=== PATIENT | male | born 1970 | race African-American/Black ===

== ENCOUNTER 2020-05-11 07:25 | Inpatient (IN) | payer OTHER ==
[2020-05-11] VITALS (31 sets, daily range): BP systolic 147–244; BP diastolic 81–172
[~2020-05-11] VITALS: Ht 182.9 cm; Wt 205.0 kg
[2020-05-11] MEDS ORDERED: SODIUM CHLORIDE 0.9% 1,000 ML IV ONE ×2 (07:59)
[2020-05-11 08:17] LABS: HEMATOCRIT. 49.4 % (42.0-52.0); HEMOGLOBIN. 14.7 g/dL (14.0-18.0); MEAN CORPUSCULAR HEMOGLOBIN 29.2 pg (28.0-32.0); MEAN CORPUSCULAR VOLUME 98.3 fL (80.0-94.0); MEAN PLATELET VOLUME 10.7 fl (7.4-10.4); PLATELET 270 x1000/uL (130-400); RED BLOOD CELL COUNT 5.02 mill/uL (4.7-6.1); RED CELL DISTRIBUTION WIDTH 16.2 % (11.6-14.6)
[2020-05-11 08:27] LABS: CHLORIDE 104 mEq/L (98-107)
[2020-05-11] MEDS ORDERED: INSULIN REGULAR (DRIP) 100 UNITS in SODIUM CHLORIDE 0.9% 99 ML IV ONE ×4 (09:00)
[2020-05-11 09:04] LABS: BG BASE EXCESS -4.1 mmol/L (-2.0-2.0); BG CARBOXYHEMOGLOBIN 0.6 % (0.5-1.5); BG DEOXYHEMOGLOBIN 7.8 % (0.0-5.0); BG FRACTION INSPIRED OXYGEN 21; BG HCO3 ACT 22.7 mmol/L (22.0-26.0); BG METHEMOGLOBIN 0.3 % (0.0-1.5); BG OXYGEN SATURATION 92.1 % (92.0-98.5); BG OXYHEMOGLOBIN 91.3 % (94.0-97.0); BG PCO2 47.8 mmHg (35.0-45.0); BG PH 7.295 (7.350-7.450); BG PO2 68.5 mmHg (75.0-100.0); BG SAMPLE SITE LEFT RADIAL; BG TOTAL HEMOGLOBIN 15.4 g/dL (12.0-18.0); BG VENT MODE ROOM AIR
[2020-05-11 09:34] LABS: CLARITY URINE CLOUDY (CLEAR); COLOR URINE YELLOW (YELLOW); KETONES URINE TRACE (NEGATIVE); LEUKOCYTE ESTERASE URINE NEGATIVE (NEGATIVE); NITRITE URINE NEGATIVE (NEGATIVE); OCCULT BLOOD URINE TRACE (NEGATIVE); PROTEIN URINE NEGATIVE (NEGATIVE); SPECIFIC GRAVITY URINE 1.038 (1.005-1.030); UROBILINOGEN URINE 0.2 E.U./dL (0.2-1.0)
[2020-05-11 09:51] LABS: PLATELET ESTIMATE NORMAL
[2020-05-11] MEDS ORDERED: IPRATROPIUM/ALBUTEROL 0.5-3(2.5)MG/3ML NEB HHN PRN (15:15)
[2020-05-11] MEDS ORDERED: ACETAMINOPHEN 325MG TABLET PO PRN (15:15)
[2020-05-11] MEDS ORDERED: INSULIN REGULAR (DRIP) 100 UNITS in SODIUM CHLORIDE 0.9% 99 ML IV SCH ×2 (15:15→21:00)
[2020-05-11] MEDS ORDERED: ENOXAPARIN 40MG/0.4ML SYR SUBCUT SCH (15:15)
[2020-05-11] MEDS ORDERED: INSULIN REGULAR (HUMULIN R) 300UNITS/3ML IV ONE (15:15)
[2020-05-11] MEDS: SODIUM CHLORIDE 0.9% 1,000 ML IV SCH ×2 (15:27→19:22)
[2020-05-11] MEDS ORDERED: LEVOFLOXACIN 500MG PREMIX 100 ML IV SCH (15:30)
[2020-05-11] MEDS ORDERED: PANTOPRAZOLE SODIUM 40 MG/VIAL IV SCH (15:30)
[2020-05-11] MEDS: ONDANSETRON HCL 4MG/2ML INJ IV PRN (15:32)
[2020-05-11] MEDS: PANTOPRAZOLE SODIUM 40 MG/VIAL IV SCH (15:33)
[2020-05-11 16:08] LABS: CHLORIDE 115 mEq/L (98-107)
[2020-05-11] MEDS ORDERED: INSULIN REGULAR (DRIP) 100 UNITS in SODIUM CHLORIDE 0.9% 99 ML IV PRN (18:30)
[2020-05-11] MEDS ORDERED: POTASSIUM CHLORIDE INJ 40 MEQ in DEXT 5% WATER 250 ML IV NR (20:00)
[2020-05-11] MEDS ORDERED: DEXTROSE 50% WATER 50ML SYRINGE IV PRN ×3 (20:15)
[2020-05-11] MEDS ORDERED: CLONIDINE 0.1MG TABLET PO PRN (20:15)
[2020-05-11] MEDS: BLOOD SUGAR DIAGNOSTIC STRIP TEST SCH ×4 (20:31→23:00)
[2020-05-11] MEDS: ENOXAPARIN 40MG/0.4ML SYR SUBCUT SCH (20:52)
[2020-05-11] MEDS ORDERED: PIPERACILLIN/TAZOBACTAM 3.375 G in DEXTROSE 5% WATER 50 ML IV STA (21:15)
[2020-05-11] MEDS: SODIUM CHL 0.45% + KCL 20MEQ/L 1,000 ML IV SCH (22:32)
[2020-05-11] MEDS ORDERED: VANCOMYCIN 2,000 MG in DEXT 5% WATER 500 ML IV SCH (23:00)
[2020-05-11 23:39] LABS: HEMATOCRIT 47.6 % (42.0-52.0); HEMOGLOBIN 15.2 g/dL (14.0-18.0); MEAN CORPUSCULAR HEMOGLOBIN 29.3 pg (28.0-32.0); MEAN CORPUSCULAR VOLUME 91.7 fL (80.0-94.0); PLATELET 270 x1000/uL (130-400); RED BLOOD CELL COUNT 5.19 mill/uL (4.7-6.1); RED CELL DISTRIBUTION WIDTH 14.9 % (11.6-14.6)
[2020-05-11] MEDS ORDERED: CLONIDINE 0.1MG TABLET PO SCH (23:45)
[2020-05-12] VITALS (43 sets, daily range): BP systolic 111–210; BP diastolic 54–156
[2020-05-12] MEDS ORDERED: PIPERACILLIN/TAZOBACTAM 3.375 G/VIAL IV SCH
[2020-05-12] MEDS: PIPERACILLIN/TAZOBACTAM 3.375 G in DEXT 5% WATER 100 ML IV SCH ×3 (00:36→10:05)
[2020-05-12] MEDS: BLOOD SUGAR DIAGNOSTIC STRIP TEST SCH ×6 (00:37→23:54)
[2020-05-12] MEDS: CLONIDINE 0.1MG TABLET PO PRN ×2 (01:45→08:11)
[2020-05-12] MEDS ORDERED: VANCOMYCIN 1 G PREMIX 200 ML IV SCH ×2 (06:00→07:00)
[2020-05-12] MEDS ORDERED: ALBUMIN HUMAN 12.5G/250ML (5%) IV SCH (06:00)
[2020-05-12 06:05] LABS: BASOPHILS % 0.2 % (0.0-2.0); EOSINOPHILS % 0.1 % (0.0-5.0); HEMATOCRIT. 47.3 % (42.0-52.0); HEMOGLOBIN. 15.1 g/dL (14.0-18.0); LYMPHOCYTES % 7.6 % (20.0-50.0); MEAN CORPUSCULAR HEMOGLOBIN 29.4 pg (28.0-32.0); MEAN CORPUSCULAR VOLUME 92.2 fL (80.0-94.0); MEAN PLATELET VOLUME 10.8 fl (7.4-10.4); MONOCYTES % 5.9 % (2.0-8.0); NEUTROPHILS % 86.2 % (40.0-76.0); PLATELET 242 x1000/uL (130-400); RED BLOOD CELL COUNT 5.13 mill/uL (4.7-6.1); RED CELL DISTRIBUTION WIDTH 15.3 % (11.6-14.6)
[2020-05-12] MEDS: SODIUM CHL 0.45% + KCL 20MEQ/L 1,000 ML IV SCH (06:37)
[2020-05-12] MEDS: ONDANSETRON HCL 4MG/2ML INJ IV PRN (06:50)
[2020-05-12] MEDS ORDERED: BLOOD SUGAR DIAGNOSTIC STRIP TEST SCH ×2 (08:00→11:30)
[2020-05-12] MEDS ORDERED: DEXTROSE 50% WATER 50ML SYRINGE IV PRN (08:00)
[2020-05-12] MEDS ORDERED: INSULIN LISPRO 100 UNITS/ML SUBCUT SCH ×2 (08:00→12:00)
[2020-05-12] MEDS: ENOXAPARIN 40MG/0.4ML SYR SUBCUT SCH ×2 (08:12→20:05)
[2020-05-12] MEDS: PANTOPRAZOLE SODIUM 40 MG/VIAL IV SCH (08:14)
[2020-05-12 08:28] LABS: CHLORIDE 118 mEq/L (98-107)
[2020-05-12 08:37] LABS: LDL CHOLESTEROL 105 mg/dL (5-100)
[2020-05-12 08:38] LABS: HDL CHOLESTEROL 31 mg/dL (40-59); T4 FREE 0.82 ng/dL (0.76-1.46)
[2020-05-12] MEDS ORDERED: INSULIN LISPRO 100 UNITS/ML SUBCUT NR ×5 (12:00→21:00)
[2020-05-12] MEDS: INSULIN LISPRO 100 UNITS/ML SUBCUT SCH ×3 (12:00→20:00)
[2020-05-12] MEDS ORDERED: INSULIN GLARGINE UD 100 UNITS/ML SYR SUBCUT NR ×2 (12:30→17:30)
[2020-05-12] MEDS ORDERED: LEVOFLOXACIN 500MG PREMIX 100 ML IV SCH (13:00)
[2020-05-12] MEDS ORDERED: DIPHENHYDRAMINE 50MG/ML VIAL IV PRN (14:00)
[2020-05-12] MEDS ORDERED: SODIUM CHL 0.45% + KCL 20MEQ/L 1,000 ML IV SCH (14:00)
[2020-05-12] MEDS ORDERED: FUROSEMIDE 40MG/4ML VIAL IVP NR (14:00)
[2020-05-12] MEDS ORDERED: HYDROCODONE/ACETAMINOPHEN 5/325MG TABLET PO PRN (14:00)
[2020-05-12] MEDS ORDERED: ACETAMINOPHEN 650MG SUPP PR PRN (14:00)
[2020-05-12] MEDS: HYDRALAZINE HCL 25MG TABLET PO SCH ×2 (14:38→21:08)
[2020-05-12] MEDS ORDERED: INSULIN LISPRO 100 UNITS/ML SUBCUT ONE (16:15)
[2020-05-12] MEDS: VANCOMYCIN 1250MG in DEXTROSE 5% WATER 250ML IV SCH (17:25)
[2020-05-12] MEDS: ATORVASTATIN CALCIUM 10MG TABLET PO SCH (20:05)
[2020-05-12] MEDS ORDERED: INSULIN GLARGINE UD 100 UNITS/ML SYR SUBCUT SCH ×4 (22:00)
[2020-05-13] VITALS (12 sets, daily range): BP systolic 97–163; BP diastolic 54–113
[2020-05-13] MEDS ORDERED: INSULIN LISPRO 100 UNITS/ML SUBCUT SCH (00:15)
[2020-05-13] MEDS: BLOOD SUGAR DIAGNOSTIC STRIP TEST SCH ×5 (03:56→19:38)
[2020-05-13] MEDS: INSULIN LISPRO 100 UNITS/ML SUBCUT SCH ×6 (04:04→19:46)
[2020-05-13] MEDS: HYDRALAZINE HCL 25MG TABLET PO SCH ×3 (05:10→21:05)
[2020-05-13] MEDS: VANCOMYCIN 1250MG in DEXTROSE 5% WATER 250ML IV SCH (05:10)
[2020-05-13] MEDS: CLONIDINE 0.1MG TABLET PO PRN (05:24)
[2020-05-13 06:14] LABS: HEMATOCRIT 43.2 % (42.0-52.0); HEMOGLOBIN 13.7 g/dL (14.0-18.0); MEAN CORPUSCULAR HEMOGLOBIN 29.2 pg (28.0-32.0); MEAN CORPUSCULAR VOLUME 91.9 fL (80.0-94.0); PLATELET 186 x1000/uL (130-400)
[2020-05-13] MEDS: ENOXAPARIN 40MG/0.4ML SYR SUBCUT SCH (08:16)
[2020-05-13] MEDS: FAMOTIDINE 20MG TABLET PO SCH ×2 (08:16→20:08)
[2020-05-13] MEDS: ALBUMIN HUMAN 12.5GM/50ML (25%) IV SCH ×2 (11:45→17:00)
[2020-05-13] MEDS: INSULIN GLARGINE UD 100 UNITS/ML SYR SUBCUT SCH (11:45)
[2020-05-13] MEDS: LEVOFLOXACIN 250MG PREMIX 50 ML IV SCH (13:20)
[2020-05-13] MEDS ORDERED: SODIUM POLYSTYRENE SULFONATE 15 G/60 ML BOT PO NR (15:00)
[2020-05-13] MEDS: ATORVASTATIN CALCIUM 10MG TABLET PO SCH (20:08)
[2020-05-13] MEDS ORDERED: INSULIN GLARGINE UD 100 UNITS/ML SYR SUBCUT SCH (22:00)
[2020-05-14] VITALS (12 sets, daily range): BP systolic 108–182; BP diastolic 52–98
[2020-05-14] MEDS: BLOOD SUGAR DIAGNOSTIC STRIP TEST SCH ×6 (00:07→20:15)
[2020-05-14] MEDS: INSULIN LISPRO 100 UNITS/ML SUBCUT SCH ×6 (00:11→20:19)
[2020-05-14] MEDS: ALBUMIN HUMAN 12.5GM/50ML (25%) IV SCH ×2 (01:07→06:13)
[2020-05-14] MEDS: CLONIDINE 0.1MG TABLET PO PRN ×2 (03:47→16:40)
[2020-05-14] MEDS: HYDRALAZINE HCL 25MG TABLET PO SCH ×3 (06:13→22:08)
[2020-05-14 06:42] LABS: HEMATOCRIT 38.9 % (42.0-52.0); HEMOGLOBIN 12.5 g/dL (14.0-18.0); MEAN CORPUSCULAR HEMOGLOBIN 29.5 pg (28.0-32.0); MEAN CORPUSCULAR VOLUME 91.6 fL (80.0-94.0); PLATELET 139 x1000/uL (130-400); RED BLOOD CELL COUNT 4.25 mill/uL (4.7-6.1); RED CELL DISTRIBUTION WIDTH 14.4 % (11.6-14.6)
[2020-05-14] MEDS: ENOXAPARIN 40MG/0.4ML SYR SUBCUT SCH (08:58)
[2020-05-14] MEDS: FAMOTIDINE 20MG TABLET PO SCH (08:59)
[2020-05-14] MEDS: SODIUM CHLORIDE 0.9% 1,000 ML IV SCH ×2 (08:59→18:39)
[2020-05-14] MEDS: INSULIN GLARGINE UD 100 UNITS/ML SYR SUBCUT SCH ×2 (08:59→22:12)
[2020-05-14] MEDS ORDERED: LEVOFLOXACIN 500MG PREMIX 100 ML IV SCH (10:00)
[2020-05-14] MEDS: LEVOFLOXACIN 250MG PREMIX 50 ML IV SCH (12:42)
[2020-05-14] MEDS: ACETAMINOPHEN 325MG TABLET PO PRN (16:40)
[2020-05-14] MEDS: ATORVASTATIN CALCIUM 10MG TABLET PO SCH (20:20)
[2020-05-15] VITALS (12 sets, daily range): BP systolic 122–188; BP diastolic 50–86
[2020-05-15] MEDS: INSULIN LISPRO 100 UNITS/ML SUBCUT SCH ×7 (00:03→23:41)
[2020-05-15] MEDS: ONDANSETRON HCL 4MG/2ML INJ IV PRN (01:30)
[2020-05-15] MEDS: CLONIDINE 0.1MG TABLET PO PRN (02:16)
[2020-05-15] MEDS: BLOOD SUGAR DIAGNOSTIC STRIP TEST SCH ×7 (03:33→23:36)
[2020-05-15] MEDS: SODIUM CHLORIDE 0.9% 1,000 ML IV SCH ×3 (04:34→23:43)
[2020-05-15] MEDS: HYDRALAZINE HCL 25MG TABLET PO SCH ×3 (05:48→21:41)
[2020-05-15 05:59] LABS: HEMATOCRIT 36.4 % (42.0-52.0); MEAN CORPUSCULAR HEMOGLOBIN 29.9 pg (28.0-32.0); MEAN CORPUSCULAR VOLUME 90.9 fL (80.0-94.0); PLATELET 157 x1000/uL (130-400); RED CELL DISTRIBUTION WIDTH 14.3 % (11.6-14.6)
[2020-05-15] MEDS: DOCUSATE SODIUM 100MG CAPSULE PO PRN (09:28)
[2020-05-15] MEDS: ENOXAPARIN 40MG/0.4ML SYR SUBCUT SCH (09:28)
[2020-05-15] MEDS: FAMOTIDINE 20MG TABLET PO SCH (09:29)
[2020-05-15] MEDS: INSULIN GLARGINE UD 100 UNITS/ML SYR SUBCUT SCH ×2 (09:31→21:40)
[2020-05-15] MEDS: AMLODIPINE 5MG TABLET PO SCH ×2 (12:25→20:29)
[2020-05-15 15:37] LABS: INR 1.2; PROTHROMBIN TIME 12.6 sec (9.6-11.0)
[2020-05-15 17:31] LABS: CLARITY URINE TURBID (CLEAR); COLOR URINE ORANGE (YELLOW); KETONES URINE NEGATIVE (NEGATIVE); LEUKOCYTE ESTERASE URINE 3+ (NEGATIVE); NITRITE URINE NEGATIVE (NEGATIVE); OCCULT BLOOD URINE 3+ (NEGATIVE); PROTEIN URINE 2+ (NEGATIVE); SPECIFIC GRAVITY URINE 1.015 (1.005-1.030); UROBILINOGEN URINE 0.2 E.U./dL (0.2-1.0)
[2020-05-15 17:45] LABS: *AMPHETAMINES SCREEN URINE NEGATIVE (NEGATIVE); *BARBITURATES SCREEN URINE NEGATIVE (NEGATIVE); *BENZODIAZEPINES SCREEN URINE NEGATIVE (NEGATIVE); *COCAINE SCREEN URINE NEGATIVE (NEGATIVE); METHADONE URINE SCREEN NEGATIVE (NEGATIVE); OPIATES URINE SCREEN PRESUMTIVE POSITIVE (NEGATIVE)
[2020-05-15 17:46] LABS: CANNABINOID URINE SCREEN NEGATIVE (NEGATIVE); PHENCYCLIDINE URINE SCREEN NEGATIVE (NEGATIVE)
[2020-05-15] MEDS: ATORVASTATIN CALCIUM 10MG TABLET PO SCH (20:29)
[2020-05-16] VITALS (12 sets, daily range): BP systolic 101–172; BP diastolic 50–84
[2020-05-16] MEDS: BLOOD SUGAR DIAGNOSTIC STRIP TEST SCH ×6 (03:39→23:51)
[2020-05-16] MEDS: INSULIN LISPRO 100 UNITS/ML SUBCUT SCH ×6 (03:39→23:52)
[2020-05-16] MEDS: HYDRALAZINE HCL 25MG TABLET PO SCH ×3 (06:35→22:10)
[2020-05-16 06:47] LABS: BASOPHILS % 0.2 % (0.0-2.0); EOSINOPHILS % 3.8 % (0.0-5.0); HEMATOCRIT. 35.3 % (42.0-52.0); HEMOGLOBIN. 11.5 g/dL (14.0-18.0); LYMPHOCYTES % 8.6 % (20.0-50.0); MEAN CORPUSCULAR HEMOGLOBIN 29.7 pg (28.0-32.0); MEAN CORPUSCULAR VOLUME 90.8 fL (80.0-94.0); MEAN PLATELET VOLUME 10.2 fl (7.4-10.4); MONOCYTES % 10.6 % (2.0-8.0); NEUTROPHILS % 76.8 % (40.0-76.0); PLATELET 168 x1000/uL (130-400); RED BLOOD CELL COUNT 3.88 mill/uL (4.7-6.1); RED CELL DISTRIBUTION WIDTH 14.8 % (11.6-14.6)
[2020-05-16] MEDS: FAMOTIDINE 20MG TABLET PO SCH (08:38)
[2020-05-16] MEDS: DOCUSATE SODIUM 100MG CAPSULE PO PRN (08:39)
[2020-05-16] MEDS: AMLODIPINE 5MG TABLET PO SCH ×2 (08:39→22:10)
[2020-05-16] MEDS: ENOXAPARIN 40MG/0.4ML SYR SUBCUT SCH (08:40)
[2020-05-16] MEDS: INSULIN GLARGINE UD 100 UNITS/ML SYR SUBCUT SCH ×2 (09:35→22:07)
[2020-05-16] MEDS ORDERED: LEVOFLOXACIN 250MG PREMIX 50 ML IV SCH (11:00)
[2020-05-16] MEDS: LEVOFLOXACIN 250MG TABLET PO SCH (13:20)
[2020-05-16] MEDS: SODIUM CHLORIDE 0.9% 1,000 ML IV SCH (13:32)
[2020-05-16] MEDS: ATORVASTATIN CALCIUM 10MG TABLET PO SCH (22:09)
[2020-05-17] VITALS (12 sets, daily range): BP systolic 112–152; BP diastolic 43–91
[2020-05-17] MEDS: BLOOD SUGAR DIAGNOSTIC STRIP TEST SCH ×6 (03:42→23:30)
[2020-05-17] MEDS: INSULIN LISPRO 100 UNITS/ML SUBCUT SCH ×6 (03:42→23:39)
[2020-05-17] MEDS: HYDRALAZINE HCL 25MG TABLET PO SCH ×3 (06:34→21:35)
[2020-05-17 06:50] LABS: BASOPHILS % 0.3 % (0.0-2.0); EOSINOPHILS % 3.1 % (0.0-5.0); HEMATOCRIT. 35.9 % (42.0-52.0); HEMOGLOBIN. 11.8 g/dL (14.0-18.0); LYMPHOCYTES % 10.4 % (20.0-50.0); MEAN CORPUSCULAR HEMOGLOBIN 29.7 pg (28.0-32.0); MEAN CORPUSCULAR VOLUME 90.6 fL (80.0-94.0); MEAN PLATELET VOLUME 9.7 fl (7.4-10.4); MONOCYTES % 13.6 % (2.0-8.0); NEUTROPHILS % 72.6 % (40.0-76.0); PLATELET 202 x1000/uL (130-400); RED BLOOD CELL COUNT 3.97 mill/uL (4.7-6.1); RED CELL DISTRIBUTION WIDTH 14.4 % (11.6-14.6)
[2020-05-17] MEDS: FAMOTIDINE 20MG TABLET PO SCH (09:58)
[2020-05-17] MEDS: ENOXAPARIN 40MG/0.4ML SYR SUBCUT SCH (09:59)
[2020-05-17] MEDS: AMLODIPINE 5MG TABLET PO SCH ×2 (09:59→21:35)
[2020-05-17] MEDS: INSULIN GLARGINE UD 100 UNITS/ML SYR SUBCUT SCH ×2 (10:00→21:32)
[2020-05-17] MEDS: ACETAMINOPHEN 325MG TABLET PO PRN (20:05)
[2020-05-17] MEDS: ONDANSETRON HCL 4MG/2ML INJ IV PRN (20:45)
[2020-05-17] MEDS: ATORVASTATIN CALCIUM 10MG TABLET PO SCH (21:34)
[2020-05-18] VITALS (10 sets, daily range): BP systolic 122–165; BP diastolic 51–78
[2020-05-18] MEDS: BLOOD SUGAR DIAGNOSTIC STRIP TEST SCH ×6 (03:30→23:30)
[2020-05-18] MEDS: INSULIN LISPRO 100 UNITS/ML SUBCUT SCH ×5 (03:43→19:55)
[2020-05-18] MEDS: HYDRALAZINE HCL 25MG TABLET PO SCH (05:32)
[2020-05-18 07:33] LABS: HEMATOCRIT. 34.3 % (42.0-52.0); HEMOGLOBIN. 11.2 g/dL (14.0-18.0); MEAN CORPUSCULAR HEMOGLOBIN 29.6 pg (28.0-32.0); MEAN CORPUSCULAR VOLUME 90.7 fL (80.0-94.0); MEAN PLATELET VOLUME 10.1 fl (7.4-10.4); PLATELET 218 x1000/uL (130-400); RED BLOOD CELL COUNT 3.79 mill/uL (4.7-6.1); RED CELL DISTRIBUTION WIDTH 15.2 % (11.6-14.6)
[2020-05-18] MEDS: AMLODIPINE 5MG TABLET PO SCH ×2 (09:57→21:10)
[2020-05-18] MEDS: FAMOTIDINE 20MG TABLET PO SCH (09:57)
[2020-05-18] MEDS: ENOXAPARIN 40MG/0.4ML SYR SUBCUT SCH (09:58)
[2020-05-18] MEDS: INSULIN GLARGINE UD 100 UNITS/ML SYR SUBCUT SCH ×2 (10:00→22:36)
[2020-05-18 12:09] LABS: PLATELET ESTIMATE NORMAL
[2020-05-18] MEDS: LEVOFLOXACIN 250MG TABLET PO SCH (13:47)
[2020-05-18] MEDS: HYDRALAZINE HCL 50MG TABLET PO SCH ×2 (13:47→21:10)
[2020-05-18] MEDS ORDERED: PIPERACILLIN/TAZOBACTAM 2.25 G in DEXTROSE 5% WATER 50 ML IV SCH (14:00)
[2020-05-18] MEDS: PIPERACILLIN/TAZOBACTAM 2.25 G in DEXTROSE 5% WATER 50 ML IV SCH ×2 (18:54→21:06)
[2020-05-18] MEDS: ATORVASTATIN CALCIUM 10MG TABLET PO SCH (21:10)
[2020-05-18] MEDS: ONDANSETRON HCL 4MG/2ML INJ IV PRN (22:51)
[2020-05-19] VITALS (18 sets, daily range): BP systolic 91–168; BP diastolic 55–92
[2020-05-19] MEDS: BLOOD SUGAR DIAGNOSTIC STRIP TEST SCH ×6 (03:30→20:38)
[2020-05-19] MEDS: INSULIN LISPRO 100 UNITS/ML SUBCUT SCH ×7 (03:52→20:38)
[2020-05-19] MEDS: HYDRALAZINE HCL 50MG TABLET PO SCH ×3 (05:42→22:41)
[2020-05-19] MEDS: PIPERACILLIN/TAZOBACTAM 2.25 G in DEXTROSE 5% WATER 50 ML IV SCH (05:42)
[2020-05-19] MEDS: INSULIN GLARGINE UD 100 UNITS/ML SYR SUBCUT SCH ×2 (09:08→22:42)
[2020-05-19] MEDS: DOCUSATE SODIUM 100MG CAPSULE PO PRN (09:09)
[2020-05-19] MEDS: ENOXAPARIN 40MG/0.4ML SYR SUBCUT SCH (09:09)
[2020-05-19] MEDS: AMLODIPINE 5MG TABLET PO SCH ×2 (09:10→20:36)
[2020-05-19] MEDS: FAMOTIDINE 20MG TABLET PO SCH (09:10)
[2020-05-19] MEDS: ONDANSETRON HCL 4MG/2ML INJ IV PRN ×2 (10:48→10:49)
[2020-05-19 11:17] LABS: HEMATOCRIT. 34.9 % (42.0-52.0); HEMOGLOBIN. 11.4 g/dL (14.0-18.0); MEAN CORPUSCULAR HEMOGLOBIN 29.7 pg (28.0-32.0); MEAN CORPUSCULAR VOLUME 90.9 fL (80.0-94.0); MEAN PLATELET VOLUME 9.6 fl (7.4-10.4); PLATELET 239 x1000/uL (130-400); RED BLOOD CELL COUNT 3.83 mill/uL (4.7-6.1); RED CELL DISTRIBUTION WIDTH 15.1 % (11.6-14.6)
[2020-05-19 13:10] LABS: PLATELET ESTIMATE NORMAL
[2020-05-19] MEDS: FLUCONAZOLE 200 MG/100ML BAG 100 ML IV SCH (14:33)
[2020-05-19] MEDS: ATORVASTATIN CALCIUM 10MG TABLET PO SCH (20:36)
[2020-05-20] VITALS (10 sets, daily range): BP systolic 133–178; BP diastolic 53–110
[2020-05-20] MEDS: BLOOD SUGAR DIAGNOSTIC STRIP TEST SCH ×2 (06:01→11:20)
[2020-05-20] MEDS: HYDRALAZINE HCL 50MG TABLET PO SCH (06:01)
[2020-05-20 07:12] LABS: BASOPHILS % 0.7 % (0.0-2.0); EOSINOPHILS % 3.2 % (0.0-5.0); HEMATOCRIT. 35.8 % (42.0-52.0); HEMOGLOBIN. 11.6 g/dL (14.0-18.0); LYMPHOCYTES % 10.7 % (20.0-50.0); MEAN CORPUSCULAR HEMOGLOBIN 29.6 pg (28.0-32.0); MEAN CORPUSCULAR VOLUME 91.3 fL (80.0-94.0); MEAN PLATELET VOLUME 9.1 fl (7.4-10.4); MONOCYTES % 12.2 % (2.0-8.0); NEUTROPHILS % 73.2 % (40.0-76.0); PLATELET 290 x1000/uL (130-400); RED BLOOD CELL COUNT 3.92 mill/uL (4.7-6.1); RED CELL DISTRIBUTION WIDTH 15.1 % (11.6-14.6)
[2020-05-20 07:19] LABS: CHLORIDE 114 mEq/L (98-107)
[2020-05-20] MEDS: ENOXAPARIN 40MG/0.4ML SYR SUBCUT SCH (08:12)
[2020-05-20] MEDS: AMLODIPINE 5MG TABLET PO SCH (08:12)
[2020-05-20] MEDS: INSULIN LISPRO 100 UNITS/ML SUBCUT SCH ×2 (08:14→11:56)
[2020-05-20] MEDS: FAMOTIDINE 20MG TABLET PO SCH (08:17)
[2020-05-20] MEDS: INSULIN GLARGINE UD 100 UNITS/ML SYR SUBCUT SCH (10:16)
[2020-05-20] MEDS ORDERED: LEVOFLOXACIN 250MG PREMIX 50 ML IV SCH (12:00)
[2020-05-20] MEDS: FLUCONAZOLE 200 MG/100ML BAG 100 ML IV SCH (13:25)
[2020-05-20] MEDS ORDERED: FLUCONAZOLE 100MG/50ML in BAG IV SCH (14:00)
[2020-05-20] MEDS ORDERED: HYDRALAZINE HCL 100MG TABLET PO SCH (14:00)
[2020-05-20] MEDS ORDERED: SYRI-218 SQ (14:30)
[2020-05-20] MEDS ORDERED: HYDR100T26 MT (14:30)
[2020-05-20] MEDS ORDERED: BLOO-1465 MT (14:30)
[2020-05-20] MEDS ORDERED: LANC1COM2 MC (14:30)
[2020-05-20] MEDS ORDERED: FAMO-135 PO (14:30)
[2020-05-20] MEDS ORDERED: INSU100I28 SQ (14:30)
[2020-05-20] MEDS ORDERED: AMLO10TA4 MT (14:30)
== END 2020-05-20 16:05 | disposition home health service (06) | DRG 637 ==
LOC: ER 07:25 → EDBEDREQ 08:55 → EDBEDREQTM 08:55 → EDBEDREQSVC 10:28 → MICUNO 10:43 → EDBEDREQ 10:45 → EDBEDREQTM 10:45 → ENRESERV 15:47 → MICUNO 17:45 → 3WST 05-12 12:45
PROVIDERS: ADMIT Internal Medicine; ATTEND Internal Medicine
PROC: 02HV33Z Insertion of Infusion Device into Superior Vena Cava, Percutaneous Approach (ICD-10-PCS; principal; 2020-05-16)
PROC: B548ZZA Ultrasonography of Superior Vena Cava, Guidance (ICD-10-PCS; 2020-05-16)
PROC: 5A1D70Z Performance of Urinary Filtration, Intermittent, Less than 6 Hours Per Day (ICD-10-PCS; 2020-05-16)
DX: E11.00 Type 2 diabetes mellitus with hyperosmolarity without nonketotic hyperglycemic-hyperosmolar coma (NKHHC) (principal); I50.33 Acute on chronic diastolic (congestive) heart failure; N17.0 Acute kidney failure with tubular necrosis; E87.0 Hyperosmolality and hypernatremia; Z68.44 Body mass index [BMI] 60.0-69.9, adult; B37.49 Other urogenital candidiasis; I44.2 Atrioventricular block, complete; E66.2 Morbid (severe) obesity with alveolar hypoventilation; L97.909 Non-pressure chronic ulcer of unspecified part of unspecified lower leg with unspecified severity; E11.21 Type 2 diabetes mellitus with diabetic nephropathy; E78.5 Hyperlipidemia, unspecified; R63.1 Polydipsia; R68.2 Dry mouth, unspecified; E87.5 Hyperkalemia; R74.8 Abnormal levels of other serum enzymes; I11.0 Hypertensive heart disease with heart failure; I25.10 Atherosclerotic heart disease of native coronary artery without angina pectoris; D72.825 Bandemia; Z79.4 Long term (current) use of insulin; Z82.49 Family history of ischemic heart disease and other diseases of the circulatory system; Z79.899 Other long term (current) drug therapy; Z83.3 Family history of diabetes mellitus; E11.622 Type 2 diabetes mellitus with other skin ulcer
CPT/HCPCS: 36415; 36600; 71045; 76700; 76770; 76937; 78582; 80048; 80053; 80061; 80076; 80202; 80305; 81003; 82010; 82375; 82805; 82962; 83036; 83880; 84153; 84439; 84443; 84481; 84484; 85025; 85027; 85379; 87070; 87077; 87186; 93005; 93306; 93970; 96365; 97116; 97162; 97166; 97530; 97535; 99291; A9558; C1752; C1769; C9113; J1200; J1450; J1650; J1815; J1940; J1956; J2405; J2543; J3370; J3480; J7030; J7050; J7060; P9041; P9047; G0103